=== PATIENT | male | born 1955 | race Caucasian/White ===

== ENCOUNTER 2016-07-05 13:08 | Emergency (ER) | payer OTHER ==
[~2016-07-05] VITALS: Ht 190.5 cm; Wt 145.1 kg
[~2016-07-05 13:08] MED LIST: ALLO300T2 PO; ALPR-323 PO; AMLO10TA2 PO; FINASTERIDE PO; RAMI10CA PO; SERT100T PO; SIMV20TA6 PO; TAMS0.4C34 PO
[2016-07-05 13:16] VITALS: BP 116/63
--- NOTE | 2016-07-05 13:41 | NUR ---
XRAY AT BEDSIDE Addendum: 07/05/16 at 1342 by [email or web address] PT TAKEN TO XRAY
== END 2016-07-05 14:55 | disposition home or self-care (01) ==
LOC: ER 13:10
DX: S99.922A Unspecified injury of left foot, initial encounter (principal); I10 Essential (primary) hypertension; E11.9 Type 2 diabetes mellitus without complications; E78.00 Pure hypercholesterolemia, unspecified; Z79.899 Other long term (current) drug therapy; Z96.643 Presence of artificial hip joint, bilateral; W19.XXXA Unspecified fall, initial encounter; Y93.9 Activity, unspecified; Y92.9 Unspecified place or not applicable; Y99.9 Unspecified external cause status
CPT/HCPCS: 73502; 73660; 99284; A4606; Z7610; 73510-TC